=== PATIENT | female | born 1985 | race Two or more races ===

== ENCOUNTER 2017-05-08 16:38 | Emergency (ER) | payer MEDICAID ==
--- NOTE | 2017-05-08 17:28 | ER Document Report ---
HPI - HPI Pain Level: 3 Notes: 31-year-old female presents to the ED complaining of an insect bite to her right index finger 1 week ago. She questions if there is a spider bite. Patient states that she did have some pustular drainage after the first day or 2 along with swelling throughout the week, but the swelling has down over the last couple days. Patient states that she still has continued soreness and a little redness to her right index finger. She has a "weird" sensation traveling up her hand and upper arm over the last day. She does not take any medicines daily. She is not taking any [id number] meds for her symptoms. She does have an allergy to penicillins which was first noted when she was a child and it was reported to be a rash. She still eating and drink without any problems. Denies any current discharge, abscess, issues with range of motion of her hand and or her fingers. Denies any fever, headaches, URI, sore throat, dysphagia, dysphasia, chest pain, syncope, palpitations, dyspnea, shortness of breath, wheeze, cough, abdominal pain, nausea/vomiting, diarrhea, dysuria, muscle weakness/paralysis. - ROS Notes: REVIEW OF SYSTEMS: CONSTITUTIONAL : Denies fever, chills, or sweats. Denies recent illness. EENT: Denies eye, ear, throat, or mouth pain or symptoms. Denies nasal or sinus congestion or discharge. Denies throat, tongue, or mouth swelling or difficulty swallowing. CARDIOVASCULAR: Denies chest pain. Denies palpitations or racing or irregular heart beat. Denies ankle edema. RESPIRATORY: Denies cough, cold, or chest congestion. Denies shortness of breath, difficulty breathing, or wheezing. GASTROINTESTINAL: Denies abdominal pain or distention. Denies nausea, vomiting , or diarrhea. Denies blood in vomitus, stools, or per rectum. Denies black, tarry stools. Denies constipation. MUSCULOSKELETAL: see hpi SKIN: see hpi LYMPHATIC: Denies swollen, enlarged glands. NEUROLOGICAL: Denies dizziness or lightheadedness. Denies headache. Denies weakness or paralysis or loss of use of either side. Denies sensory loss, numbness, or tingling. ALL OTHER SYSTEMS REVIEWED AND NEGATIVE. Dictation was performed using [employer] recognition software - DERM Skin Color: Normal Past Medical History - Social History Smoking Status: Unknown if Ever Smoked Family History: Reviewed & Not Pertinent Patient has suicidal ideation: No Patient has homicidal ideation: No Renal/ Medical History: Denies: Hx Peritoneal Dialysis Vertical Provider Document - CONSTITUTIONAL Notes: PHYSICAL EXAMINATION: GENERAL: Well-appearing, well-nourished and in no acute distress. ENT: EAC clear b/l. TM's intact b/l without erythema, fluid, or perforation. Nares patent and without discharge. oropharynx clear without exudates. No tonsilar hypertrophy or erythema. Moist mucous membranes. No sinus tenderness. No angioedema. NECK: Normal range of motion, supple without lymphadenopathy. No rigidity. LUNGS: Breath sounds clear to auscultation bilaterally and equal. No wheezes rales or rhonchi. HEART: Regular rate and rhythm without murmurs, rubs, gallops. Musculoskeletal: Rt index finger: FROM to passive/active. Strength 5+/5. + mild erythema posteriorly without abscess or discharge. No red streaks. No induration to finger or the soft tissue proximally all the way up the rt axilla. No prox lymphadenopathy noted. none to mild tenderness to palp of the index finger. Extremities: No cyanosis, clubbing, or edema b/l. Peripheral pulses 2+. Capillary refill less than 3 seconds. NEUROLOGICAL: Normal sensory, motor exams PSYCH: Normal mood, normal affect. SKIN: Warm, Dry, normal turgor, no rashes or lesions noted. No abrasion, laceration, ecchymosis, or puncture wounds noted to the skin. No increase in warmth to the finger when compared to the other fingers/hand. - INFECTION CONTROL TRAVEL OUTSIDE OF THE [place] IN LAST 30 DAYS: No - RESPIRATORY O2 Sat by Pulse Oximetry: 98 Course - Re-evaluation Re-evalutation: 05/08/17 17:37 Patient is a 31-year-old afebrile, well-hydrated female who presents with a mild cellulitis to the right index finger status post subjective insect bite one week ago. Vitals are stable. PE is otherwise unremarkable. I will cover her with Keflex 500 mg p.o. twice daily for 10 days. Precaution reviewed that there is a approx a 10% chance of cross reactivity if you are allergic to penicillins. If she notices any allergic reaction to take benadryl and come to the ED. Pt is in agreement with and verbalized understanding of the risks/ benefits. Conservative measures otherwise for symptoms. Recheck with PCM in 2- 3 days. Return to the ED with any worsening symptoms as reviewed in discharge otherwise. Pt in agreement. - Vital Signs Vital signs: Temp Pulse Resp BP Pulse Ox 98.3 F 84 16 126/79 H 98 05/08/17 16:41 05/08/17 16:41 05/08/17 16:41 05/08/17 16:41 05/08/17 16:41 Discharge - Discharge Clinical Impression: Cellulitis Qualifiers: Site of cellulitis: extremity Site of cellulitis of extremity: finger Laterality: right Qualified Code(s): L03.011 - Cellulitis of right finger Condition: Stable Disposition: HOME, SELF-CARE Additional Instructions: Maintain fluid intake Take medication for full dose as directed Epsom salt soaks daily May apply bacitracin if any break in the skin Ice may help May apply benadryl cream as well to help with inflammation If noticing any generalized rash, facial swelling, trouble breathing to take benadryl and come to the ED. Recheck with your PCM in 2-3 days. Return to the ED with any worsening symptoms and/or development of fever, headache, chest pain, palpitations, syncope, shortness of breath, trouble breathing, abdominal pain, n/v/d, blood in stool/urine, urinary retention, muscle weakness/paralysis, abscess formation, purulent discharge, numbness/ tingling, or other worsening symptoms that are concerning to you. Prescriptions: Cephalexin Monohydrate [Keflex 500 mg Capsule] 500 mg PO BID #20 capsule Referrals: [facility] [Provider Group] - Follow up as needed
[2017-05-08 17:59] VITALS: BP 100/66
== END 2017-05-08 18:04 | disposition home or self-care (01) ==
LOC: ER 16:38
DX: L03.011 Cellulitis of right finger (principal); Z88.0 Allergy status to penicillin
CPT/HCPCS: 99281